=== PATIENT | male | born 1990 | race African-American/Black ===

== ENCOUNTER 2017-02-05 12:29 | Emergency (ER) | payer MEDICAID ==
[~2017-02-05] VITALS: Ht 172.7 cm; Wt 70.0 kg
[2017-02-05 14:33] LABS: BASOPHILS % 0.6 % (0.0-2.0); HEMATOCRIT. 46.5 % (42.0-52.0); HEMOGLOBIN. 15.8 g/dL (14.0-18.0); LYMPHOCYTES % 13.5 % (20.0-50.0); MEAN CORPUSCULAR HEMOGLOBIN 29.7 pg (28.0-32.0); MEAN CORPUSCULAR VOLUME 87.6 fL (80.0-94.0); MEAN PLATELET VOLUME 7.6 fl (7.4-10.4); MONOCYTES % 8.5 % (2.0-8.0); NEUTROPHILS % 76.4 % (40.0-76.0); PLATELET 309 x1000/uL (130-400); WHITE BLOOD COUNT 8.8 x1000/uL (4.5-11.0)
[2017-02-05 14:37] LABS: INR 1.1; PARTIAL THROMBOPLASTIN TIME 28.5 sec (24.0-34.0); PROTHROMBIN TIME 11.7 sec
[2017-02-05 14:39] LABS: ANION GAP 13; CALCIUM 9.2 mg/dL (8.5-10.1); CARBON DIOXIDE 30 mEq/L (21-32); CHLORIDE 101 mEq/L (98-107); ETHANOL BLOOD < 10 mg/dL; INDEX HEMOLYSI 1 (1-3); INDEX ICTERIC 1 (1-4); INDEX LIPEMIC 1 (1-3); LIPASE 79 IU/L (73-393); UREA NITROGEN BLOOD 13 mg/dL (7-21); eGFR > 60 mL/min (>60)
[2017-02-05 14:45] LABS: CLARITY URINE CLEAR (CLEAR); COLOR URINE YELLOW (YELLOW); GLUCOSE URINE NEGATIVE (NEGATIVE); KETONES URINE 2+ (NEGATIVE); LEUKOCYTE ESTERASE URINE NEGATIVE (NEGATIVE); NITRITE URINE NEGATIVE (NEGATIVE); OCCULT BLOOD URINE 2+ (NEGATIVE); PH URINE 5.5 (4.5-8.0); PROTEIN URINE NEGATIVE (NEGATIVE); UROBILINOGEN URINE 0.2 E.U./dL (0.2-1.0)
[2017-02-05] MEDS ORDERED: KETOROLAC 30MG/ML VIAL IV STA (14:49)
[2017-02-05] MEDS ORDERED: SODIUM CHLORIDE 0.9% 1,000 ML IV ONE (14:49)
[2017-02-05 14:56] LABS: BACTERIA URINE NONE SEEN; SQUAMOUS EPITHELIAL CELL URINE FEW /lpf (RARE/1+); WBC URINE 0-2 /hpf (0-2)
[2017-02-05 15:12] LABS: *AMPHETAMINES SCREEN URINE NEGATIVE (NEGATIVE); *BARBITURATES SCREEN URINE NEGATIVE (NEGATIVE); *BENZODIAZEPINES SCREEN URINE NEGATIVE (NEGATIVE); *COCAINE SCREEN URINE NEGATIVE (NEGATIVE); CANNABINOID URINE SCREEN PRESUMTIVE POSITIVE (NEGATIVE); ECSTASY MDMA SCREEN URINE NEGATIVE (NEGATIVE); METHADONE URINE SCREEN NEGATIVE (NEGATIVE); OPIATES URINE SCREEN NEGATIVE (NEGATIVE); PHENCYCLIDINE URINE SCREEN NEGATIVE (NEGATIVE)
[2017-02-05 17:14] VITALS: BP 121/74
== END 2017-02-05 17:16 | disposition home or self-care (01) ==
LOC: ER 14:56
DX: R31.9 Hematuria, unspecified (principal); R10.31 Right lower quadrant pain; F17.200 Nicotine dependence, unspecified, uncomplicated; Z87.442 Personal history of urinary calculi
CPT/HCPCS: 36415; 71010; 74176; 80048; 80305; 81001; 83690; 85025; 85610; 85730; 96361; 96374; 99285; G0482; J1885; J7030; Z7610

== ENCOUNTER 2017-03-31 18:25 | Emergency (ER) | payer MEDICAID ==
[~2017-03-31] VITALS: Ht 172.7 cm; Wt 77.0 kg
[2017-03-31 18:37] VITALS: BP 128/76
== END 2017-03-31 19:40 | disposition home or self-care (01) ==
LOC: ER 18:26
DX: R07.81 Pleurodynia (principal); R03.0 Elevated blood-pressure reading, without diagnosis of hypertension; F15.10 Other stimulant abuse, uncomplicated; F17.210 Nicotine dependence, cigarettes, uncomplicated; J45.909 Unspecified asthma, uncomplicated
CPT/HCPCS: 99283

== ENCOUNTER 2021-02-04 20:10 | Emergency (ER) | payer MEDICAID, OTHER ==
[~2021-02-04] VITALS: Ht 172.7 cm; Wt 74.0 kg
[2021-02-04 21:00] VITALS: BP 139/87
== END 2021-02-04 21:30 | disposition home or self-care (01) ==
LOC: ER 20:10
DX: R51.9 Headache, unspecified (principal); J45.909 Unspecified asthma, uncomplicated; F31.9 Bipolar disorder, unspecified; F20.9 Schizophrenia, unspecified; F15.10 Other stimulant abuse, uncomplicated
CPT/HCPCS: 99283